=== PATIENT | female | born 1935 | race Caucasian/White ===

== ENCOUNTER 2021-07-06 12:33 | Emergency (ER) | payer OTHER, BC ==
[~2021-07-06] VITALS: Ht 170.2 cm; Wt 61.2 kg
[2021-07-06] MEDS ORDERED: ZOLOFT20 MG/1 ML (12:45)
[2021-07-06] MEDS ORDERED: TOPROL XL25 M1 (12:45)
[2021-07-06] MEDS ORDERED: ALTACE2.5 MG (12:45)
== END 2021-07-06 16:54 | disposition home or self-care (01) ==
LOC: ER 12:33
DX: S90.02XA Contusion of left ankle, initial encounter (principal); S90.32XA Contusion of left foot, initial encounter; W18.30XA Fall on same level, unspecified, initial encounter; Y92.039 Unspecified place in apartment as the place of occurrence of the external cause; I10 Essential (primary) hypertension